=== PATIENT | male | born 1985 | race Caucasian/White ===

== ENCOUNTER 2018-04-17 10:11 | Inpatient (IN) | payer MEDICAID ==
[2018-04-17 10:57] LABS: ADD MAN DIFF? NO
[2018-04-17 10:59] LABS: WHITE BLOOD COUNT 6.8 10^3/ul (4.8-10.8)
[2018-04-17 10:59] LABS: BASOPHILS % 0.4 % (0.0-2.0); EOSINOPHILS # 0.1 10^3/ul (0.0-0.5); EOSINOPHILS % 1.9 % (0.0-7.0); HEMATOCRIT 49.8 % (42.0-52.0); HEMOGLOBIN 16.9 g/dl (14.0-18.0); LYMPHOCYTES # 1.9 10^3/ul (0.8-2.9); LYMPHOCYTES % 28.4 % (15.0-51.0); MEAN CORPUSCULAR HEMOGLOBIN 28.4 pg (29.0-33.0); MEAN CORPUSCULAR HGB CONC 33.9 g/dl (32.0-37.0); MEAN CORPUSCULAR VOLUME 83.6 fl (82.0-101.0); MEAN PLATELET VOLUME 9.5 fl (7.4-10.4); MONOCYTE # 0.5 10^3/ul (0.3-0.9); MONOCYTES % 6.8 % (0.0-11.0); NEUTROPHIL # 4.2 10^3/ul (1.6-7.5); NEUTROPHILS % 61.8 % (39.0-77.0); PLATELET COUNT 210 10^3/UL (140-415); RED BLOOD COUNT 5.96 10^6/ul (4.70-6.10); RED CELL DISTRIBUTION WIDTH 12.6 % (11.5-14.5)
[2018-04-17] MEDS: SOD CHLORIDE 0.9% 1,000 ML IV (11:12)
[2018-04-17 11:15] LABS: ANION GAP 12 (8-16); BLOOD UREA NITROGEN 13 mg/dl (7-20); CALCIUM 9.2 mg/dl (8.4-10.2); CARBON DIOXIDE 29 mmol/L (21-31); CHLORIDE 104 mmol/L (97-110); CREATININE 0.93 mg/dl (0.61-1.24); GLUCOSE 184 mg/dl (70-220); POTASSIUM 3.9 mmol/L (3.5-5.1); SODIUM 141 mmol/L (135-144)
[2018-04-17 11:19] LABS: INR 0.93; PROTIME 12.5 Sec (11.9-14.9)
[2018-04-17 11:20] LABS: PARTIAL THROMBOPLASTIN TIME 25.5 Sec (25.0-35.0)
[2018-04-17 11:27] LABS: TROPONIN-I < 0.012 ng/ml (0.000-0.120)
[2018-04-17] MEDS: IOHEXOL 100 ML (12:33)
[2018-04-17] MEDS: SOD CHLORIDE 0.9% 100 ML (12:34)
[2018-04-17] MEDS ORDERED: ACETAMINOPHEN 325 MG TAB PO ×2 (13:30→15:30)
[2018-04-17] MEDS ORDERED: ONDANSETRON 4 MG INJ IV ×2 (13:30→15:30)
[2018-04-17] MEDS ORDERED: NACL 0.9% 3 ML SYG IV (15:30)
[2018-04-17] MEDS ORDERED: MAGNESIUM HYDROXIDE 30ML CUP PO (15:30)
[2018-04-17] MEDS ORDERED: BISACODYL 10 MG SUPP PR (15:30)
[2018-04-17] MEDS ORDERED: HYDROCODONE/APAP (5/325) TAB PO ×2 (15:30)
[2018-04-17] MEDS ORDERED: DOCUSATE SODIUM 100 MG CAP PO (15:30)
[2018-04-17] MEDS ORDERED: ACETAMINOPHEN 650 MG SUPP PR (15:30)
[2018-04-17] MEDS ORDERED: morphine 2 MG INJ IV (15:30)
[2018-04-17] MEDS: predniSONE 20 MG TAB PO (17:10)
[2018-04-18] MEDS: PANTOPRAZOLE 40 MG INJ IV (05:52)
[2018-04-18 06:55] LABS: ADD MAN DIFF? NO
[2018-04-18 07:00] LABS: BASOPHILS % 0.1 % (0.0-2.0); EOSINOPHILS % 0.1 % (0.0-7.0); HEMATOCRIT 47.7 % (42.0-52.0); HEMOGLOBIN 16.2 g/dl (14.0-18.0); LYMPHOCYTES # 1.2 10^3/ul (0.8-2.9); LYMPHOCYTES % 8.2 % (15.0-51.0); MEAN CORPUSCULAR HEMOGLOBIN 28.1 pg (29.0-33.0); MEAN CORPUSCULAR VOLUME 82.7 fl (82.0-101.0); MEAN PLATELET VOLUME 9.7 fl (7.4-10.4); MONOCYTE # 0.4 10^3/ul (0.3-0.9); MONOCYTES % 2.9 % (0.0-11.0); NEUTROPHIL # 12.8 10^3/ul (1.6-7.5); PLATELET COUNT 228 10^3/UL (140-415); RED BLOOD COUNT 5.77 10^6/ul (4.70-6.10); RED CELL DISTRIBUTION WIDTH 12.8 % (11.5-14.5)
[2018-04-18 07:00] LABS: WHITE BLOOD COUNT 14.6 10^3/ul (4.8-10.8)
[2018-04-18 07:32] LABS: ALANINE AMINOTRANSFERASE 59 IU/L (13-69); ALBUMIN/GLOBULIN RATIO 1.14; ALKALINE PHOSPHATASE 69 IU/L (42-121); ANION GAP 14 (8-16); ASPARTATE AMINO TRANSFERASE 44 IU/L (15-46); BILIRUBIN,INDIRECT 0.5 mg/dl (0-1.1); BILIRUBIN,TOTAL 0.5 mg/dl (0.2-1.3); BLOOD UREA NITROGEN 15 mg/dl (7-20); CALCIUM 9.4 mg/dl (8.4-10.2); CARBON DIOXIDE 28 mmol/L (21-31); CHLORIDE 103 mmol/L (97-110); CHOL/HDL RATIO 4.5 RATIO; CHOLESTEROL 200 mg/dl (100-200); CREATININE 0.92 mg/dl (0.61-1.24); GLUCOSE 126 mg/dl (70-220); HDL CHOLESTEROL 44 mg/dl (28-63); LDL CHOLESTEROL,CALCULATED 136 mg/dl; MAGNESIUM 1.6 mg/dl (1.7-2.5); PHOSPHORUS 5.7 mg/dl (2.5-4.9); POTASSIUM 4.1 mmol/L (3.5-5.1); SODIUM 141 mmol/L (135-144); TOTAL PROTEIN 7.5 g/dl (6.1-8.1); TRIGLYCERIDES 100 mg/dl (0-149)
[2018-04-18 07:42] LABS: FREE THYROXINE INDEX (Calc) 2.64 ug/ml (0.65-3.89); T3 UPTAKE 33.9 % (23.5-40.5); T4 (THYROXINE) 7.8 ug/dl (5.5-11.0)
[2018-04-18 07:56] LABS: THYROID STIMULATING HORMONE 0.522 MIU/L (0.465-4.680)
[2018-04-18 08:38] LABS: HEMOGLOBIN A1C 5.9 % (0-5.9)
[2018-04-18 08:42] LABS: ERYTHROCYTE SEDIMENTATION RATE 1 mm/Hr (0-15)
[2018-04-18] MEDS: MAGNESIUM SULFATE 2 GM/50 ML 50 ML IVPB (16:38)
[2018-04-18 19:05] LABS: RHEUMATOID FACTOR NEGATIVE (NEGATIVE)
[2018-04-19] MEDS: PANTOPRAZOLE 40 MG INJ IV (05:45)
[2018-04-19 06:53] LABS: ADD MAN DIFF? NO
[2018-04-19 06:56] LABS: BASOPHILS % 0.4 % (0.0-2.0); EOSINOPHILS # 0.1 10^3/ul (0.0-0.5); EOSINOPHILS % 1.3 % (0.0-7.0); HEMATOCRIT 44.8 % (42.0-52.0); HEMOGLOBIN 15.3 g/dl (14.0-18.0); LYMPHOCYTES # 2.9 10^3/ul (0.8-2.9); LYMPHOCYTES % 37.3 % (15.0-51.0); MEAN CORPUSCULAR HEMOGLOBIN 28.2 pg (29.0-33.0); MEAN CORPUSCULAR HGB CONC 34.2 g/dl (32.0-37.0); MEAN CORPUSCULAR VOLUME 82.7 fl (82.0-101.0); MONOCYTE # 0.7 10^3/ul (0.3-0.9); MONOCYTES % 8.4 % (0.0-11.0); NEUTROPHIL # 4.1 10^3/ul (1.6-7.5); NEUTROPHILS % 52.2 % (39.0-77.0); PLATELET COUNT 197 10^3/UL (140-415); RED BLOOD COUNT 5.42 10^6/ul (4.70-6.10); RED CELL DISTRIBUTION WIDTH 13.1 % (11.5-14.5)
[2018-04-19 06:56] LABS: WHITE BLOOD COUNT 7.8 10^3/ul (4.8-10.8)
[2018-04-19 07:46] LABS: ANION GAP 14 (8-16); BLOOD UREA NITROGEN 18 mg/dl (7-20); CALCIUM 8.6 mg/dl (8.4-10.2); CARBON DIOXIDE 29 mmol/L (21-31); CHLORIDE 103 mmol/L (97-110); CREATININE 1.09 mg/dl (0.61-1.24); GLUCOSE 96 mg/dl (70-220); MAGNESIUM 1.9 mg/dl (1.7-2.5); POTASSIUM 3.6 mmol/L (3.5-5.1); SODIUM 142 mmol/L (135-144)
[2018-04-19 11:31] LABS: CREATINE KINASE 44 IU/L (23-200)
[2018-04-19 13:06] LABS: ANA SCREEN NEGATIVE (NEGATIVE)
== END 2018-04-19 14:11 | disposition home or self-care (01) | DRG 312 ==
LOC: E/R 10:11 → TEL 13:13
DX: R55 Syncope and collapse (principal); E86.0 Dehydration; G51.0 Bell's palsy; F17.210 Nicotine dependence, cigarettes, uncomplicated; R51 Headache
CPT/HCPCS: 36415; 70450; 70496; 70498; 70552; 71045; 80048; 80053; 80061; 82550; 82962; 83036; 83735; 84100; 84436; 84443; 84479; 84484; 85025; 85610; 85651; 85730; 86038; 86430; 93005; 93306; 97161; 99285-25; G0378